=== PATIENT | male | born 1975 | race African-American/Black ===

== ENCOUNTER 2018-04-19 07:59 | Emergency (ER) | payer MEDICAID, OTHER ==
[~2018-04-19] VITALS: Ht 182.9 cm; Wt 86.0 kg
[~2018-04-19 07:59] MED LIST: ALBU17AE26
[2018-04-19] MEDS ORDERED: PREDNISONE 20MG TABLET PO STA (08:07)
[2018-04-19] MEDS ORDERED: ALBUTEROL (0.083%) 2.5MG/3ML NEB HHN STA (08:07)
[2018-04-19] MEDS ORDERED: IPRATROPIUM BROMIDE (0.02%) 0.5MG/2.5ML NEB HHN STA (08:07)
[2018-04-19] MEDS ORDERED: IPRATROPIUM/ALBUTEROL 0.5-3(2.5)MG/3ML NEB ONE (08:45)
[2018-04-19 09:19] VITALS: BP 142/82
== END 2018-04-19 09:20 | disposition home or self-care (01) ==
LOC: ER 07:59
DX: J45.901 Unspecified asthma with (acute) exacerbation (principal); I10 Essential (primary) hypertension; F17.200 Nicotine dependence, unspecified, uncomplicated; Z88.0 Allergy status to penicillin; Z88.1 Allergy status to other antibiotic agents
CPT/HCPCS: 71045; 94640; 99283; J7512; J7611; J7620

== ENCOUNTER 2019-08-31 10:26 | Emergency (ER) | payer MEDICAID ==
[~2019-08-31] VITALS: Ht 180.3 cm; Wt 70.0 kg
[2019-08-31] MEDS ORDERED: METHYLPREDNISOLONE SOD SUCC 125 MG/2 ML VIAL IM STA (10:56)
[2019-08-31] MEDS ORDERED: ALBUTEROL (0.083%) 2.5MG/3ML NEB HHN STA (10:56)
[2019-08-31 11:30] VITALS: BP 127/82
== END 2019-08-31 11:51 | disposition home or self-care (01) ==
LOC: ER 11:01
DX: J45.901 Unspecified asthma with (acute) exacerbation (principal); J44.9 Chronic obstructive pulmonary disease, unspecified; Z88.0 Allergy status to penicillin; Z88.8 Allergy status to other drugs, medicaments and biological substances
CPT/HCPCS: 71045; 96372; 99283; J2930

== ENCOUNTER 2020-06-13 15:15 | Emergency (ER) | payer MEDICAID ==
[~2020-06-13] VITALS: Ht 188 cm; Wt 100.0 kg
[2020-06-13] MEDS ORDERED: KETOROLAC 30MG/ML VIAL IV STA (16:18)
[2020-06-13] MEDS ORDERED: MORPHINE SULFATE 4 MG/ML CPJ (NOT FOR IM USE) IV STA (16:23)
[2020-06-13] MEDS ORDERED: BACITRACIN ZINC OINT UDPKT TOP ONE (16:30)
[2020-06-13] MEDS ORDERED: TETANUS, DIPHTHERIA, PERTUSSIS VAC/PF 0.5ML (>7YR OLD) IM ONE (16:30)
[2020-06-13] MEDS ORDERED: LIDOCAINE HCL/PF 1% 10 MG/ML 5ML VIAL IJ ONE (16:30)
[2020-06-13] MEDS ORDERED: ALBUTEROL (0.083%) 2.5MG/3ML NEB HHN NR (18:28)
[2020-06-13] MEDS ORDERED: CLINDAMYCIN 600 MG in DEXTROSE 5% WATER 50 ML IV NR (18:30)
[2020-06-13] MEDS ORDERED: ALBU18HF2 IH (18:57)
[2020-06-13] MEDS ORDERED: CLIN300C12 MT (18:57)
[2020-06-13] MEDS ORDERED: OXYC1TAB21 PO (18:57)
[2020-06-13] MEDS ORDERED: NAPR-681 PO (18:57)
[2020-06-13] MEDS ORDERED: CLINDAMYCIN 600MG PREMIX 50 ML IV NR (19:00)
[2020-06-13 20:30] VITALS: BP 136/77
== END 2020-06-13 21:16 | disposition home or self-care (01) ==
LOC: ER 15:15
DX: S02.40DA Maxillary fracture, left side, initial encounter for closed fracture (principal); V19.9XXA Pedal cyclist (driver) (passenger) injured in unspecified traffic accident, initial encounter; Y93.89 Activity, other specified; Y92.89 Other specified places as the place of occurrence of the external cause; Y99.8 Other external cause status; J45.909 Unspecified asthma, uncomplicated; J44.9 Chronic obstructive pulmonary disease, unspecified; Z79.899 Other long term (current) drug therapy; Z88.0 Allergy status to penicillin
CPT/HCPCS: 12015; 70486; 73110; 90471; 90715; 94640; 96365; 96375; 99284; J2270; J3490; J7060; Z7610

== ENCOUNTER 2023-02-15 09:22 | Emergency (ER) | payer SELFPAY ==
[~2023-02-15] VITALS: Ht 182.9 cm; Wt 100.0 kg
[~2023-02-15 09:22] MED LIST changes: +ALBU18HF2 IH; +CLIN-194 MT; +NAPR-681 PO; +OXYC1TAB5 PO
[2023-02-15 09:23] VITALS: BP 140/86; PULSE 98; RESP 18; TEMP 98.6; O2SAT 96
[2023-02-15] MEDS ORDERED: ALBUTEROL (0.083%) 2.5MG/3ML NEB HHN STA (09:26)
[2023-02-15] MEDS ORDERED: IPRATROPIUM BROMIDE (0.02%) 0.5MG/2.5ML NEB HHN STA (09:26)
[2023-02-15] MEDS ORDERED: PREDNISONE 20MG TABLET PO STA (09:26)
== END 2023-02-15 09:53 | disposition left against medical advice (07) ==
LOC: ER 09:38
DX: J45.901 Unspecified asthma with (acute) exacerbation (principal); Z79.899 Other long term (current) drug therapy
CPT/HCPCS: 99283